=== PATIENT | female | born 1955 | race Caucasian/White ===

== ENCOUNTER → 2017-06-22 | Day surgery (SDC) | payer OTHER ==
--- NOTE | 2017-06-20 20:05 | History & Physical Pre-Op ---
General Information and HPI History of Present Illness: Nory is a 61-year-old female with a long-standing and worsening complaint of pain to both the left and right feet. The patient has undergone an extended course of conservative care, including shoe gear and activity modification, rest , immobilization and courses of NSAIDs. None of this is yielded her any significant relief. The patient presents in a for preoperative surgical consultation. The patient was referred to our office from Franco Flores DPM. Allergies/Medications Allergies: Coded Allergies: Anesthetics - Amide Type (VOMITING 06/19/17) Anesthetics - Katie Type- Parabens (VOMITING 06/19/17) erythromycin base (RASH, ITCHY 06/19/17) metoclopramide (LOCK JAW AND VOMITING 06/19/17) oxycodone (NAUSEA 06/19/17) prochlorperazine (LOCK JAW AND VOMITING 06/19/17) Home Med list Albuterol Sulfate (Proair Hfa) 90 MCG HFA.AER.AD 2 PUFF INH PRN ASTHMA ( Reported) Fluticasone Propionate (Allergy Relief) 50 MCG/ACTUATION SPRAY.SUSP 2 SPRAY NASB DAILY ALLERGIES (Reported) Fluticasone/Vilanterol (Breo Ellipta 200-25 Mcg INH) 200 MCG-25 MCG/DOSE BLST.W.DEV 1 PUFF INH DAILY ASTHMA (Reported) Glucosamine/D3/Boswellia Bryanna (Glucosamine Daily Complex Tab) (Unknown Strength ) TABLET (Unknown Dose) PO DAILY SUPPLEMENT (Reported) Ibuprofen/Pseudoephedrine HCl (Advil Cold & Sinus Caplet) 200 MG-30 MG TABLET 1 CAP PO QPM SINUSES (Reported) Losartan Potassium 25 MG TABLET 1 TAB PO DAILY BP (Reported) Montelukast Sodium 10 MG TABLET 1 TAB PO DAILY ALLERGIES/ASTHMA (Reported) Pantoprazole Sodium 40 MG TABLET.DR 1 TAB PO BID ACID REFLUX (Reported) Propranolol HCl 10 MG TABLET 1 TAB PO BID MOBILITY ISSUE (Reported) Tiotropium [place] (Spiriva Respimat) 1.25 MCG/ACTUATION MIST.INHAL 2 PUFF INH DAILY ASTHMA (Reported) Past History Medical History Cardiovascular: hypertension Respiratory: asthma Surgical History Pertinent Surgical History: none (Carpal tunnel, oophrectomy) Review of Systems Review of Systems: Unremarkable except for a noted history of present illness Exam & Diagnostic Data Physical Exam: Lungs clear bilaterally. Heart sounds rate and rhythm regular. Lower extremity physical exam demonstrates intact pedal pulses bilaterally. Both dorsalis pedis and posterior tibial arteries are palpable bilaterally. Patient without any sensory motor deficits. Deep tendon reflexes grossly intact. Patient noted assuming pain with palpation and range of motion to the first metatarsophalangeal joints left and right. Patient also have a palpable click consistent with a Yasir sign to the intermetatarsal spaces left and right feet. Assessment/Plan Assessment/Plan: Painful hallux limitus and neuromas bilaterally. A lengthy discussion reviewing both surgical and conservative options was held the patient at bedside and the patient elects to go forward with surgery despite the risks. As Ranked By This Provider Problem List: 1. Acquired hallux limitus of both feet Attending MD Review Statement Attending Statement Attending MD Statement: examined this patient
[~2017-06-22] VITALS: Ht 167.6 cm; Wt 83.9 kg
[~2017-06-22] MED LIST: ADVIL COLD & S1 EACH PO; ALLERGY RELIE15.8 ML NASB; BREO ELLIPTA 21 EACH INH; GLUCOSAMINE DA1 EACH PO; LOSARTAN POTASS25 M1 PO; MONTELUKAST SOD10 M1 PO; PANTOPRAZOLE SO40 M1 PO; PROAIR HFA8.5 GM INH; PROPRANOLOL HCL10 M1 PO; SPIRIVA RESPIMAT4 G1 INH
--- NOTE | 2017-06-22 10:48 | Operative Report ---
Operative/Inv Procedure Report Surgery Date: 06/22/17 Name of Procedure: 1 cheilectomy right first MPJ 2 cheilectomy left first MPJ 3 excision of neuroma right foot 4 excision of neuroma left foot 5 intraoperative administration of ankle block anesthesia Pre-Operative Diagnosis: 1 hallux limitus right foot 2 hallux limitus left foot 3 neuroma right foot 4 neuroma left foot Post-Operative Diagnosis: The same Estimated Blood Loss: scant Surgeon/Side Piece Coverer: Kraig MOREL,Ace Flores DPM Anesthesia: moderate sedation, block Operative/Procedure Note Note: After obtaining informed consent the patient was brought to the operating room and placed on the operating table in the supine position. The patient isn't securely fastened to the operating table utilizing safety belt. After administration of IV sedation, 10 mL of 0.5% Marcaine plain was infiltrated about the patient's left and right ankles. 2 well-padded ankle tourniquets were placed about the patient's bilateral lower extremity's. 2 g of Ancef were delivered intravenously times one dose. The left right feet were then scrubbed prepped and draped in usual aseptic manner. The left lower extremity was elevated to examine to limb, which point the ankle tourniquet inflated 250 mmHg. Attention directed dorsal aspect the left foot, where 6 cm linear incision was made just medial to course of the extensor listless longus tendon. Skin was signed 15 blade and carried down subtenons tissues. All vital neurovascular structures were identified protected. An inverted L capsulotomy was performed exposing the medial eminence was removed a sagittal bone saw. Any exostoses identified dorsally and laterally were also removed sagittal bone saw. The head was then smoothed with a rongeur and bone rasp. The wound was irrigated with cuff Svensson normal sterile saline. Capsular structures reapproximated 3-0 Vicryl subtenons tissues reports a 4-0 Vicryl and the skin edges reprepped with 4-0 Monocryl. Attention was then directed to the second interspace with 3 cm linear incision was made and carried down subtenons tissues. The digital branches of the neuroma were identified and freed and the body was distracted distally and cut proximally. The specimen was passed off for pathologic inspection. The wound was irrigated cuff Svensson normal sterile saline and deep tissues reports a 4-0 Vicryl. Skin is reprepped for nylon. The incisions were dressed with Xeroform 4 x 4's Kerlix and Giovani wrap. The tourniquet was then deflated. Next, the right lower extremity is elevated to examine to limb, which point the ankle tourniquet inflated 250 mmHg. Attention directed dorsal aspect the right foot, where 6 cm linear incision was made just medial to the course of the extensive list lungs tendon. Dissection was then carried down subtenons tissues were all vital neurovascular structures were identified protected. An inverted L capsulotomy was then performed exposing the medial eminence. This was then resected with sagittal bone saw. Any dorsal and lateral exostoses were also removed sagittal bone saw. The head was then smoothed with a rongeur and bone rasp. The wound was irrigated cuff Svensson normal sterile saline. The deep tissues reapproximated 3-0 Vicryl septae sisters reapproximated 4-0 Vicryl. Skin is reprepped for 0 Monocryl. Attention then directed to the second interspace where a 3 cm incision was made down subtenons tissues. The digital branches of the neuroma identified and released. The body of the neuroma was distracted distally and cut proximally. The specimen was passed off for pathologic inspection. The wound was irrigated with normal sterile saline. Deep tissues reports a 4-0 Vicryl skin is reprepped for nylon. Incision just Xeroform 4 x 4's Kerlix and Giovani wrap. The patient noted tolerate both procedure and anesthesia well and the patient was transported from the operative trickery by sent stable best assess intact all digits bilateral feet. Please cc a copy of this dictation to Franco Flores DPM.
== END ==
LOC: STS 02:59
DX: M20.5X2 Other deformities of toe(s) (acquired), left foot (principal); M20.5X1 Other deformities of toe(s) (acquired), right foot; G57.63 Lesion of plantar nerve, bilateral lower limbs; I10 Essential (primary) hypertension; J45.909 Unspecified asthma, uncomplicated
CPT/HCPCS: 88304; J0690; J1100; J1885; J2001; J2250; J3490